=== PATIENT | male | born 1980 ===

== ENCOUNTER 2021-08-17 18:53 | Emergency (ER) | payer OTHER, SELFPAY ==
--- NOTE | 2021-08-17 19:47 | RAD REPORT ---
EXAM DESCRIPTION: CT - CTHCSPWOC - 08/17/2021 7:33 pm CLINICAL HISTORY: Trauma, head and neck injury. fall, head injury COMPARISON: Abdomen Pelvis Wo Contrast dated 04/29/2018No comparisons TECHNIQUE: Axial 5 mm thick images of the head were obtained. Axial 2 mm thick images of the cervical spine were obtained with sagittal and coronal reconstruction images generated and reviewed. All CT scans are performed using dose optimization technique as appropriate and may include automated exposure control or mA/KV adjustment according to patient size. FINDINGS: CT HEAD WITHOUT CONTRAST: No acute hemorrhage, hydrocephalus or extra-axial collection is identified.No areas of brain edema or midline shift. The paranasal sinuses and mastoids are essentially clear.The calvarium is intact. CT CERVICAL SPINE WITHOUT CONTRAST: No fracture or subluxation.Bony fusion at C3 and C4 noted.No prevertebral soft tissues swelling is id entified. IMPRESSION: No acute intracranial or cervical spine findings.
[2021-08-17] MEDS ORDERED: NA CHLORIDE 0.9% 1,000 ML ONE (19:55)
[2021-08-17] MEDS ORDERED: TETANUS & DIPHTHERIA TOX,ADULT 0.5 ML VIAL ONE (19:55)
[2021-08-17] MEDS ORDERED: THIAMINE 200 MG/2 ML INJ ONE (19:55)
[2021-08-17] MEDS ORDERED: NA CHLORIDE 0.9% 50 ML ONE (19:56)
[2021-08-17 20:11] LABS: Absolute Lymphocytes (CBC) 1.3 K/uL (0.7-4.9); Hematocrit 45.7 % (39.6-49.0); Lymphocytes % 13.1 % (15.3-44.8); MPV 8.8 fL (7.6-11.3); RBC Red Blood Cell Count 4.83 M/uL (4.33-5.43)
[2021-08-17 20:15] LABS: Protime INR 1.05
[2021-08-17 20:48] LABS: ALT/SGPT 30 U/L (12-78); AST/SGOT 18 U/L (15-37); Alkaline Phosphatase 74 U/L (45-117); BUN Blood Urea Nitrogen 12 mg/dL (7-18); Bicarbonate 22 mmol/L (21-32); Bilirubin Direct 0.1 mg/dL (0-0.2); Bilirubin Total 0.4 mg/dL (0.2-1.0); Glucose Level 101 mg/dL (74-106); Potassium 3.6 mmol/L (3.5-5.1); Protein, Total 7.5 g/dL (6.4-8.2); Sodium Level 140 mmol/L (136-145)
--- NOTE | 2021-08-17 21:03 | ER ---
Nurse's Notes [facility] Name: Miguelito Sanchez Age: 41 yrs Sex: Male : 1980 Arrival Date: 08/17/2021 Time: 18:54 Bed 3 Private MD: Diagnosis: Fall (on) (from) unspecified stairs and steps-tailgate;Laceration without foreign body of other part of head-posterior scalp;Alcohol abuse with intoxication Presentation: 08/17 18:55 Chief complaint: EMS states: pt admits to drinking, fell hit head states he passed out, iw has laceration to back of head. 18:55 Acuity: LEMUEL 3 iw 18:55 Method Of Arrival: EMS: [facility] iw 18:57 Coronavirus screen: At this time, the client does not indicate any symptoms associated iw with coronavirus-19. Ebola Screen: Patient negative for fever greater than or equal to 101.5 degrees Fahrenheit, and additional compatible Ebola Virus Disease symptoms Patient denies exposure to infectious person. Patient denies travel to an Ebola-affected area in the 21 days before illness onset. No symptoms or risks identified at this time. Initial Sepsis Screen: Does the patient meet any 2 criteria? No. Patient's initial sepsis screen is negative. Does the patient have a suspected source of infection? No. Patient's initial sepsis screen is negative. Risk Assessment: Do you want to hurt yourself or someone else? Patient reports no desire to harm self or others. Onset of symptoms was August 17, 2021. Triage Assessment: 19:17 General: Appears uncomfortable, Behavior is calm, cooperative. Pain: Complains of pain ll3 in scalp Pain does not radiate. Pain currently is 8 out of 10 on a pain scale. Is continuous. Neuro: Level of Consciousness is awake, alert, obeys commands, Oriented to person, place, time, situation. Cardiovascular: Patient's skin is warm and dry. Respiratory: Respiratory effort is even, unlabored, Respiratory pattern is regular, symmetrical. Derm: Wound noted scalp Reports pain that is 10 out of 10 on a pain scale. Injury Description: Laceration sustained to scalp is not bleeding. Historical: - Allergies: 18:57 No Known Allergies; iw - Home Meds: 18:57 None [Active]; iw - PMHx: 18:57 None; iw - Immunization history:: Adult Immunizations up to date, Client reports receiving the 2nd dose of the Covid vaccine, moderna. - Social history:: Smoking status: unknown. Screenin:00 Abuse screen: Denies threats or abuse. Denies injuries from another. Nutritional lp1 screening: No deficits noted. Tuberculosis screening: No symptoms or risk factors identified. Fall Risk Total Grimaldo Fall Scale indicates High Risk Score (45 or more points). Fall prevention measures have been instituted. Side Rails Up X 2 Family Present and informed to notify staff if the need to leave the bedside As available patient and family educated on Fall Prevention Program and Strategies. Assessment: 20:00 General: Appears in no apparent distress. uncomfortable, Behavior is calm, cooperative, al4 patient does not remember falling out of the truck and hitting his head . Pain: Complains of pain in occipital area. Neuro: Level of Consciousness is awake, alert, obeys commands, Oriented to person, place, time, Moves all extremities. Speech is normal, Pupils are PERRLA. Cardiovascular: Capillary refill < 3 seconds Patient's skin is warm and dry. Respiratory: Airway is patent Respiratory effort is unlabored, Respiratory pattern is regular. Musculoskeletal: Circulation, motion, and sensation intact. Injury Description: Laceration sustained to occipital area. 21:39 Reassessment: Patient appears in no apparent distress at this time. patient is sleeping.al4 21:50 Reassessment: Patient and/or family updated on plan of care and expected duration. Pain al4 level reassessed. Patient is alert, oriented x 3, equal unlabored respirations, skin warm/dry/pink. Vital Signs: 19:16 BP 127 / 85; Pulse 80; Resp 16; Temp 99.3(TE); Pulse Ox 97% ; Weight 90.72 kg (R); ll3 Height 6 ft. 1 in. (185.42 cm) (R); Pain 8/10; 20:06 BP 128 / 77; Pulse 83; Resp 18; Pulse Ox 97% on R/A; lp1 21:07 BP 126 / 81; Pulse 80; Resp 18; Pulse Ox 99% on R/A; lp1 19:16 Body Mass Index 26.39 (90.72 kg, 185.42 cm) ll3 [place] Coma Score: 19:55 Eye Response: spontaneous(4). Verbal Response: oriented(5). Motor Response: obeys cintia commands(6). Total: 15. ED Course: 18:54 Patient arrived in ED. iw 18:57 Triage completed. iw 18:57 Arm band placed on. iw 19:30 Raj Barclay MD is Attending Physician. [facility] 19:34 CT Head C Spine In Process Unspecified. EDMS 19:39 Alvarez Betts is Primary Nurse. al4 20:00 Patient has correct armband on for positive identification. Bed in low position. Call lp1 light in reach. Pulse ox on. NIBP on. 22:00 renaldo. Maintain EMS IV. Dressing intact. Good blood return noted. Site clean \T\ dry. al4 Gauge \T\ site: R AC. IV discontinued, intact, bleeding controlled, No redness/swelling at site. Pressure dressing applied. 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 Exp: lp1 07/24/2023. Lot #: [id number]. } Route: IM; Site: left deltoid; 22:00 Follow up: Response: No adverse reaction al4 20:03 Drug: Thiamine 100 mg Route: IV; Rate: bolus; Site: left antecubital; lp1 22:00 Follow up: IV Status: Completed infusion al4 Outcome: 21:02 Discharge ordered by . [facility] 22:00 Discharged to home ambulatory, with family. al4 22:00 Condition: stable 22:00 Discharge instructions given to patient, family, Instructed on discharge instructions, follow up and referral plans. medication usage, Demonstrated understanding of instructions, follow-up care, medications, Prescriptions given X 1. 22:02 Patient left the ED. al4 Signatures: Dispatcher [employer] EDOK Raj Barclay MD MD cha Williams, Irene, RN RN iw Enid Damon RN RN lp1 Doreen Alarcon RN RN 3 Alvarez Betts al4 Corrections: (The following items were deleted from the chart) 20:07 20:06 BP 128 / 77; lp1 lp1
--- NOTE | 2021-08-17 21:03 | EDPHYS ---
Physician Documentation [facility] Name: Miguelito Sanchez Age: 41 yrs Sex: Male : 1980 Arrival Date: 08/17/2021 Time: 18:54 Bed 3 Private MD: ED Physician Raj Barclay HPI: 08/17 19:51 This 41 yrs old Male presents to ER via EMS with complaints of Fall Injury. cintia 19:51 Details of fall: The patient fell from a height, back of trunk. Onset: The cintia symptoms/episode began/occurred just prior to arrival. Associated injuries: The patient sustained injury to the head. Severity of symptoms: At their worst the symptoms were mild, moderate, in the emergency department the symptoms are unchanged. The patient has not experienced similar symptoms in the past. Historical: - Allergies: 18:57 No Known Allergies; iw - Home Meds: 18:57 None [Active]; iw - PMHx: 18:57 None; iw - Immunization history:: Adult Immunizations up to date, Client reports receiving the 2nd dose of the Covid vaccine, moderna. - Social history:: Smoking status: unknown. ROS: 19:54 Constitutional: Negative for fever, chills, and weight loss, Eyes: Negative for injury, cintia pain, redness, and discharge, ENT: Negative for injury, pain, and discharge, Neck: Negative for injury, pain, and swelling, Cardiovascular: Negative for chest pain, palpitations, and edema, Respiratory: Negative for shortness of breath, cough, wheezing, and pleuritic chest pain, Abdomen/GI: Negative for abdominal pain, nausea, vomiting, diarrhea, and constipation, Back: Negative for injury and pain, : Negative for injury, bleeding, discharge, and swelling, MS/Extremity: Negative for injury and deformity, Skin: Negative for injury, rash, and discoloration, Psych: Negative for depression, anxiety, suicide ideation, homicidal ideation, and hallucinations, Allergy/Immunology: Negative for hives, rash, and allergies, Endocrine: Negative for neck swelling, polydipsia, polyuria, polyphagia, and marked weight changes, Hematologic/Lymphatic: Negative for swollen nodes, abnormal bleeding, and unusual bruising. 19:54 Neuro: Positive for dizziness, loss of consciousness. Exam: 19:54 Constitutional: This is a well developed, well nourished patient who is awake, alert, cintia and in no acute distress. Eyes: Pupils equal round and reactive to light, extra-ocular motions intact. Lids and lashes normal. Conjunctiva and sclera are non-icteric and not injected. Cornea within normal limits. Periorbital areas with no swelling, redness, or edema. ENT: Nares patent. No nasal discharge, no septal abnormalities noted. Tympanic membranes are normal and external auditory canals are clear. Oropharynx with no redness, swelling, or masses, exudates, or evidence of obstruction, uvula midline. Mucous membranes moist. Neck: Trachea midline, no thyromegaly or masses palpated, and no cervical lymphadenopathy. Supple, full range of motion without nuchal rigidity, or vertebral point tenderness. No Meningismus. Chest/axilla: Normal chest wall appearance and motion. Nontender with no deformity. No lesions are appreciated. Cardiovascular: Regular rate and rhythm with a normal S1 and S2. No gallops, murmurs, or rubs. Normal PMI, no JVD. No pulse deficits. Respiratory: Lungs have equal breath sounds bilaterally, clear to auscultation and percussion. No rales, rhonchi or wheezes noted. No increased work of breathing, no retractions or nasal flaring. Abdomen/GI: Soft, non-tender, with normal bowel sounds. No distension or tympany. No guarding or rebound. No evidence of tenderness throughout. Back: No spinal tenderness. No costovertebral tenderness. Full range of motion. Male : Normal genitalia with no discharge or lesions. Skin: Warm, dry with normal turgor. Normal color with no rashes, no lesions, and no evidence of cellulitis. MS/ Extremity: Pulses equal, no cyanosis. Neurovascular intact. Full, normal range of motion. Neuro: Awake and alert, GCS 15, oriented to person, place, time, and situation. Cranial nerves II-XII grossly intact. Motor strength 5/5 in all extremities. Sensory grossly intact. Cerebellar exam normal. Normal gait. Psych: Awake, alert, with orientation to person, place and time. Behavior, mood, and affect are within normal limits. 19:54 Head/face: Noted is a laceration(s), that is jagged, 3.5 cm(s), of the left occipital area and right occipital area. 21:06 ECG was reviewed by the Attending Physician. [facility] Vital Signs: 19:16 BP 127 / 85; Pulse 80; Resp 16; Temp 99.3(TE); Pulse Ox 97% ; Weight 90.72 kg (R); ll3 Height 6 ft. 1 in. (185.42 cm) (R); Pain 8/10; 20:06 BP 128 / 77; Pulse 83; Resp 18; Pulse Ox 97% on R/A; lp1 21:07 BP 126 / 81; Pulse 80; Resp 18; Pulse Ox 99% on R/A; lp1 19:16 Body Mass Index 26.39 (90.72 kg, 185.42 cm) ll3 [place] Coma Score: 19:55 Eye Response: spontaneous(4). Verbal Response: oriented(5). Motor Response: obeys [facility] commands(6). Total: 15. Laceration: 20:00 Wound Repair of 3.5cm ( 1.4in ) subcutaneous laceration to left parietal area and right cintia parietal area. Irregularly shaped.. Distal neuro/vascular/tendon intact. Anesthesia: Local anesthetic administered with 0 mls of none. Wound prep: Moderate cleansing with betadine. Skin closed with 5 1-0 Newton using staple gun. Dressed with Neosporin. Patient tolerated well. MDM: 19:30 Patient medically screened. [facility] 19:55 Differential diagnosis: Contusion of Hematoma on Laceration of Intracranial bleed- cintia Concussion with LOC. Differential diagnosis: abrasion, closed head injury, contusion, fracture, laceration, multiple trauma, sprain, strain. Data reviewed: vital signs, nurses notes, lab test result(s), EKG, radiologic studies, CT scan. 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 Test interpretation: by ED physician or midlevel provider: ECG, plain radiologic studies. Counseling: I had a detailed discussion with the patient and/or guardian regarding: the historical points, exam findings, and any diagnostic results supporting the discharge/admit diagnosis, lab results, radiology results, the need for outpatient follow up, for definitive care, a family practitioner, a neurologist. 08/17 19:39 Order name: Acetaminophen; Complete Time: 21:01 [facility] 08/17 19:39 Order name: Basic Metabolic Panel; Complete Time: 21:01 [facility] 08/17 19:39 Order name: CBC with Diff; Complete Time: 20:33 [facility] 08/17 19:39 Order name: ETOH Level; Complete Time: 21:01 [facility] 08/17 19:39 Order name: Hepatic Function; Complete Time: 21:01 [facility] 08/17 19:39 Order name: PT-INR; Complete Time: 20:33 [facility] 08/17 18:59 Order name: CT Head C Spine; Complete Time: 20:33 08/17 19:39 Order name: Ptt, Activated; Complete Time: 20:33 [facility] 08/17 19:39 Order name: Salicylate 08/17 19:39 Order name: Urine Drug Screen 08/17 19:39 Order name: EKG; Complete Time: 19:40 [facility] 08/17 19:39 Order name: EKG - Nurse/Tech; Complete Time: 21:02 [facility] 08/17 19:39 Order name: IV Saline Lock; Complete Time: 20:04 [facility] 08/17 19:39 Order name: Labs collected and sent; Complete Time: 20:04 [facility] 08/17 19:39 Order name: Suicide Screening ([place]); Complete Time: 20:04 [facility] 08/17 19:39 Order name: Dressing - Wound; Complete Time: 20:04 [facility] 08/17 19:39 Order name: Gloves, Sterile; Complete Time: 20:04 [facility] 08/17 19:39 Order name: Setup Suture Tray; Complete Time: 20:04 [facility] EC:06 Rate is 82 beats/min. Rhythm is regular. QRS Pratt is Normal. ME interval is normal. QRS cintia interval is normal. QT interval is normal. No Q waves. T waves are Normal. No ST changes noted. Clinical impression: Normal ECG and No evidence of ischemia. Interpreted by me. Reviewed by me. 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 Exp: lp1 07/24/2023. Lot #: [id number]. } Route: IM; Site: left deltoid; 22:00 Follow up: Response: No adverse reaction al4 20:03 Drug: Thiamine 100 mg Route: IV; Rate: bolus; Site: left antecubital; lp1 22:00 Follow up: IV Status: Completed infusion al4 Disposition Summary: 08/17/21 21:02 Discharge Ordered Location: Home cintia Problem: new cintia Symptoms: have improved cintia Condition: Stable cintia Diagnosis - Fall (on) (from) unspecified stairs and steps - tailgate cintia - Laceration without foreign body of other part of head - posterior scalp cintia - Alcohol abuse with intoxication cintia Followup: cintia - With: Private Physician - When: 2 - 3 days - Reason: Recheck today's complaints, Continuance of care, Re-evaluation by your physician Discharge Instructions: - Discharge Summary Sheet cintia - Alcohol Intoxication cintia - Head Injury, Adult cintia - Fall Prevention in the Home, Adult cintia - Alcohol Abuse and Nutrition cintia - Fall Prevention in the Home, Adult, [id number] cintia - Head Injury, Adult, [id number] cintia Forms: - Medication Reconciliation Form cintia - Thank You Letter cintia - Antibiotic Education cintia - Prescription Opioid Use [facility] Prescriptions: - Cephalexin 500 mg Oral Capsule - take 1 capsule by ORAL route every 6 hours for 7 days; 28 capsule; Refills: 0, cintia Product Selection Permitted Signatures: Dispatcher [employer] EDRaj Guzman MD MD cha Williams, Irene RN Enid Lagos RN RN lp1 Alvarez Betts al4 Corrections: (The following items were deleted from the chart) 21:02 19:39 Urine Dipstick-Ancillary ordered. [facility]
[2021-08-17 22:10] LABS: Barbiturates NEGATIVE (NEGATIVE); Benzodiazepines NEGATIVE (NEGATIVE); Cocaine NEGATIVE (NEGATIVE); METHAMPHETAM NEGATIVE (NEGATIVE); Methadone NEGATIVE (NEGATIVE); Opiates NEGATIVE (NEGATIVE); Phencyclidine NEGATIVE (NEGATIVE); THC Cannibis NEGATIVE (NEGATIVE)
--- NOTE | 2021-08-18 07:11 | EKG ---
Test Date: 2021-08-17 Test Time: 20:20:27 [employer] Observer: JOEL MEASUREMENT RESULTS: Intervals: Rate: 82 TX: 162 QRSD: 100 QT: 356 QTc: 415 [place]: P: 74 TX: 162 QRS: 82 T: 36 INTERPRETIVE STATEMENTS: Normal sinus rhythm Normal ECG Compared to ECG 09/02/2010 20:12:47 No significant changes Electronically Signed On 08-18-21 07:09:32 CDT by Roge Damian
[2021-08-18 13:06] VITALS: TEMP 99.3
[2021-08-18 13:08] VITALS: BP 126/81; O2SAT 99
== END 2021-08-17 22:02 | disposition home or self-care (01) ==
LOC: ER 18:53
PROC: 0JQ00ZZ Repair Scalp Subcutaneous Tissue and Fascia, Open Approach (ICD-10-PCS; principal; 2021-08-17)
DX: S01.01XA Laceration without foreign body of scalp, initial encounter (principal); F10.129 Alcohol abuse with intoxication, unspecified; W17.89XA Other fall from one level to another, initial encounter; Z23 Encounter for immunization
CPT/HCPCS: 36415; 70450; 72125; 80048; 80076; 80307; 80320; 80329; 85025; 85610; 85730; 90471; 90714; 93005; 96365; 96366; 99284; J3411; J7030